=== PATIENT | male | born 1960 | race Caucasian/White ===

== ENCOUNTER 2023-03-24 11:35 | Emergency (ER) | payer OTHER ==
[~2023-03-24] VITALS: Ht 188 cm; Wt 99.8 kg
[2023-03-24 13:18] LABS: International Normalized Ratio 0.95
[2023-03-24 13:38] LABS: BASOPHILS ABSOLUTE AUTO 0.05 K/mm3 (0.00-0.23); BASOPHILS PERCENT AUTO 1 % (0-2); EOSINOPHILS ABSOLUTE AUTO 0.19 K/mm3 (0.00-0.68); EOSINOPHILS PERCENT AUTO 3 % (0-6); Hematocrit 46.7 % (37.0-53.0); Hemoglobin 16.4 g/dL (13.5-17.5); IMMATURE GRAN ABSOLUTE AUTO 0.04 K/mm3 (0.00-0.10); IMMATURE GRAN PERCENT AUTO 1 % (0-1); LYMPHOCYTES ABSOLUTE AUTO 1.69 K/mm3 (0.84-5.20); LYMPHOCYTES PERCENT AUTO 23 % (21-46); MONOCYTES ABSOLUTE AUTO 1.32 K/mm3 (0.16-1.47); MONOCYTES PERCENT AUTO 18 % (4-13); Mean Corpuscular HGB 32.1 pg (26.0-34.0); Mean Corpuscular HGB Conc 35.1 g/dL (31.5-36.5); Mean Corpuscular Volume 91 fL (80-100); Mean Platelet Volume 9.2 fL (9.1-12.4); NEUTROPHILS ABSOLUTE AUTO 3.99 K/mm3 (1.96-9.15); NEUTROPHILS PERCENT AUTO 55 % (41-73); Platelet Count 256 K/mm3 (150-400); RDW Coefficient Variation 11.9 % (11.7-14.2); RDW Standard Deviation 40.2 fL (35.1-46.3); Red Blood Cell Count 5.11 M/mm3 (4.30-5.90); White Blood Cell Count 7.28 K/mm3 (4.00-11.30)
[2023-03-24 14:19] LABS: Albumin, Blood 3.4 g/dL (3.4-5.0); Albumin/Globulin Ratio 0.8 (0.8-1.8); Bilirubin, Total 0.5 mg/dL (0.1-1.0); Bun/Creatinine Ratio 11.2 (12.0-20.0); Calcium, Blood 9.3 mg/dL (8.5-10.1); Creatinine, Blood 0.98 mg/dL (0.60-1.20); Globulin, Blood 4.3 g/dL (2.2-4.0); Potassium, Blood 4.5 mmol/L (3.5-5.5); Total Protein, Blood 7.7 g/dL (6.4-8.2)
[2023-03-24] MEDS ORDERED: METF500 PO (16:46)
[2023-03-24 18:00] VITALS: BP 127/80
== END 2023-03-24 19:06 | disposition home or self-care (01) ==
LOC: ER 11:35
PROVIDERS: Physician Assistant
DX: K62.5 Hemorrhage of anus and rectum (principal); R10.84 Generalized abdominal pain; F43.9 Reaction to severe stress, unspecified; Z79.84 Long term (current) use of oral hypoglycemic drugs; Z87.891 Personal history of nicotine dependence
CPT/HCPCS: 80053; 85025; 85610; 99283

== ENCOUNTER 2024-07-08 12:26 | Emergency (ER) | payer OTHER ==
[~2024-07-08] VITALS: Ht 182.9 cm; Wt 97.5 kg
[~2024-07-08 12:26] MED LIST: METF500 PO
[2024-07-08] MEDS ORDERED: CIPR500 PO (13:11)
[2024-07-08 13:15] LABS: Albumin, Blood 2.5 g/dL (3.4-5.0); Albumin/Globulin Ratio 0.5 (0.8-1.8); Bilirubin, Total 0.6 mg/dL (0.1-1.0); Calcium, Blood 8.8 mg/dL (8.5-10.1); Globulin, Blood 4.8 g/dL (2.2-4.0); Potassium, Blood 4.1 mmol/L (3.5-5.5); Total Protein, Blood 7.3 g/dL (6.4-8.2)
[2024-07-08] MEDS ORDERED: HYDROmorphone HCl/Pf 1MG SYR IV ONE (13:20)
[2024-07-08] MEDS ORDERED: Ondansetron HCl 2 MG / ML 2ML Vial IV ONE (13:20)
[2024-07-08] MEDS ORDERED: Lactated Ringer's 1,000 ML IV ONE (13:20)
[2024-07-08 13:38] LABS: BASOPHILS ABSOLUTE AUTO 0.05 K/mm3 (0.00-0.23); BASOPHILS PERCENT AUTO 1 % (0-2); EOSINOPHILS ABSOLUTE AUTO 0.36 K/mm3 (0.00-0.68); EOSINOPHILS PERCENT AUTO 5 % (0-6); Hematocrit 38.6 % (37.0-53.0); Hemoglobin 13.1 g/dL (13.5-17.5); IMMATURE GRAN ABSOLUTE AUTO 0.06 K/mm3 (0.00-0.10); IMMATURE GRAN PERCENT AUTO 1 % (0-1); LYMPHOCYTES ABSOLUTE AUTO 1.22 K/mm3 (0.84-5.20); LYMPHOCYTES PERCENT AUTO 18 % (21-46); MONOCYTES PERCENT AUTO 17 % (4-13); Mean Corpuscular HGB 30.5 pg (26.0-34.0); Mean Corpuscular HGB Conc 33.9 g/dL (31.5-36.5); Mean Corpuscular Volume 90 fL (80-100); Mean Platelet Volume 8.2 fL (9.1-12.4); NEUTROPHILS ABSOLUTE AUTO 4.03 K/mm3 (1.96-9.15); NEUTROPHILS PERCENT AUTO 58 % (41-73); Platelet Count 520 K/mm3 (150-400); RDW Coefficient Variation 12.4 % (11.7-14.2); RDW Standard Deviation 40.5 fL (35.1-46.3); White Blood Cell Count 6.92 K/mm3 (4.00-11.30)
[2024-07-08] MEDS ORDERED: ONDA4ODT MM (14:23)
[2024-07-08] MEDS ORDERED: OXYC5 PO (14:23)
[2024-07-08] MEDS ORDERED: OxyCODONE 5 mg/Acetamin 325 mg TABLET PO ONE (14:25)
[2024-07-08 14:52] LABS: Adenovirus F 40/41 Not Detected (NOT DETECT); Astrovirus Not Detected (NOT DETECT); Campylobacter Sp Not Detected (NOT DETECT); Cryptosporidium Not Detected (NOT DETECT); Cyclospora Cayetanensis Not Detected (NOT DETECT); E. Coli O157 Not Detected (NOT DETECT); Entamoeba Histolytica Not Detected (NOT DETECT); Enteroaggregative E. coli-EAEC Not Detected (NOT DETECT); Enteropathogenic E. coli-EPEC Not Detected (NOT DETECT); Enterotoxigenic E. coli-ETEC Not Detected (NOT DETECT); Giardia Lamblia Not Detected (NOT DETECT); Norovirus GI/GII Not Detected (NOT DETECT); Plesiomonas Shigelloides Not Detected (NOT DETECT); Rotavirus A Not Detected (NOT DETECT); Salmonella Sp Not Detected (NOT DETECT); Sapovirus Not Detected (NOT DETECT); Shiga Toxin-prod E. coli-STEC Not Detected (NOT DETECT); Shigella/Enteroin E. coli-EIEC Not Detected (NOT DETECT); Vibrio Cholerae Not Detected (NOT DETECT); Vibrio Sp Not Detected (NOT DETECT); Yersinia Enterocolitica Not Detected (NOT DETECT)
[2024-07-08 16:00] VITALS: BP 129/66
== END 2024-07-08 16:30 | disposition home or self-care (01) ==
LOC: ER 12:26
PROVIDERS: Emergency Medicine; Physician Assistant
DX: K52.9 Noninfective gastroenteritis and colitis, unspecified (principal)
CPT/HCPCS: 80053; 85025; 86850; 86900; 86901; 87507; 96361; 96374; 96375; 99284-25; A9270; J1170; J2405; J7120

== ENCOUNTER 2024-08-31 00:34 | Day surgery (SDC) | payer OTHER ==
[~2024-08-31 00:34] MED LIST changes: +Acetaminophen 325 MG TABLET PO SCH; +CIPR500 PO; +DiphenhydrAMINE HCL 25 MG Cap PO SCH; +Hydrocortisone Sod Succinate 100 MG Vial IV SCH; +INFLIXIMAB DYYB IV SCH; +NS IV SCH; +ONDA4ODT MM; +OXYC5 PO; +PRED20 PO
[2024-08-31 13:35] VITALS: BP 133/70
[2024-08-31] MEDS ORDERED: INFLECTRA100 MG IV (13:58)
== END 2024-08-31 16:20 | disposition home or self-care (01) ==
LOC: ATC 00:34
DX: K50.90 Crohn's disease, unspecified, without complications (principal); E11.9 Type 2 diabetes mellitus without complications; D64.9 Anemia, unspecified; Z79.84 Long term (current) use of oral hypoglycemic drugs; Z87.442 Personal history of urinary calculi
CPT/HCPCS: 96375; 96413; 96415; A9270; J1720; J7050; Q5103

== ENCOUNTER 2024-09-07 15:34 | Emergency (ER) | payer OTHER ==
[~2024-09-07] VITALS: Ht 188 cm; Wt 78.9 kg
[~2024-09-07 15:34] MED LIST changes: -Acetaminophen 325 MG TABLET PO SCH; -DiphenhydrAMINE HCL 25 MG Cap PO SCH; -Hydrocortisone Sod Succinate 100 MG Vial IV SCH; +INFLECTRA100 MG IV; -INFLIXIMAB DYYB IV SCH; -NS IV SCH
[2024-09-07 15:38] VITALS: BP 147/85
[2024-09-07 16:06] LABS: Base Excess Venous 1.5 mmol/L; Bicarbonate Venous 26.3 mmol/L (24.0-30.0); PCO2 Venous 31.6 mmHg (38-42)
[2024-09-07 17:01] LABS: BASOPHILS ABSOLUTE AUTO 0.02 K/mm3 (0.00-0.23); BASOPHILS PERCENT AUTO 0 % (0-2); EOSINOPHILS ABSOLUTE AUTO 0.01 K/mm3 (0.00-0.68); EOSINOPHILS PERCENT AUTO 0 % (0-6); Hematocrit 39.4 % (37.0-53.0); Hemoglobin 12.3 g/dL (13.5-17.5); IMMATURE GRAN ABSOLUTE AUTO 0.03 K/mm3 (0.00-0.10); IMMATURE GRAN PERCENT AUTO 1 % (0-1); LYMPHOCYTES ABSOLUTE AUTO 1.06 K/mm3 (0.84-5.20); LYMPHOCYTES PERCENT AUTO 17 % (21-46); MONOCYTES ABSOLUTE AUTO 0.69 K/mm3 (0.16-1.47); MONOCYTES PERCENT AUTO 11 % (4-13); Mean Corpuscular HGB 29.1 pg (26.0-34.0); Mean Corpuscular HGB Conc 31.2 g/dL (31.5-36.5); Mean Corpuscular Volume 93 fL (80-100); Mean Platelet Volume 8.8 fL (9.1-12.4); NEUTROPHILS ABSOLUTE AUTO 4.36 K/mm3 (1.96-9.15); NEUTROPHILS PERCENT AUTO 71 % (41-73); Platelet Count 318 K/mm3 (150-400); RDW Coefficient Variation 15.1 % (11.7-14.2); RDW Standard Deviation 52.4 fL (35.1-46.3); Red Blood Cell Count 4.22 M/mm3 (4.30-5.90); White Blood Cell Count 6.17 K/mm3 (4.00-11.30)
[2024-09-07 17:13] LABS: Albumin/Globulin Ratio 0.7 (0.8-1.8); Bilirubin, Total 0.4 mg/dL (0.1-1.0); Calcium, Blood 9.2 mg/dL (8.5-10.1); Globulin, Blood 4.1 g/dL (2.2-4.0); Magnesium, Blood 1.8 mg/dL (1.6-2.4); Potassium, Blood 5.2 mmol/L (3.5-5.5); Total Protein, Blood 7.1 g/dL (6.4-8.2)
[2024-09-07 17:35] LABS: Source, Urine Clean Catch
[2024-09-07 17:43] LABS: Appearance, Urine Clear (Clear); Bilirubin, Urine Neg (Neg); Blood, Urine Neg (Neg); Glucose Qualitative, Urine 4+ (Neg); Ketones, Urine Neg (Neg); Leukocyte Esterase, Urine Neg (Neg); Nitrite, Urine Neg (Neg); Protein, Urine Neg (Neg); Urobilinogen, Urine NORM (Normal); pH, Urine 6.5 (5.0-8.0)
[2024-09-07 17:45] LABS: Color, Urine Pale Yellow (P-Yellow)
== END 2024-09-07 19:10 | disposition left against medical advice (07) ==
LOC: ER 15:34
PROVIDERS: Physician Assistant
DX: Z53.21 Procedure and treatment not carried out due to patient leaving prior to being seen by health care provider (principal)
CPT/HCPCS: 80053; 81003; 82803; 83735; 85025

== ENCOUNTER 2024-10-29 04:01 | Day surgery (SDC) | payer OTHER ==
[2024-10-29] MEDS ORDERED: INFLIXIMAB DYYB IV SCH (06:00)
[2024-10-29] MEDS ORDERED: NS IV SCH (06:00)
[2024-10-29] MEDS ORDERED: Acetaminophen 325 MG TABLET PO SCH (07:10)
[2024-10-29] MEDS ORDERED: DiphenhydrAMINE HCL 25 MG Cap PO SCH (07:10)
[2024-10-29] MEDS ORDERED: Hydrocortisone Sod Succinate 100 MG Vial IV SCH (07:10)
[2024-10-29 14:20] VITALS: BP 140/86
== END 2024-10-29 17:06 | disposition home or self-care (01) ==
LOC: ATC 04:01
DX: K50.90 Crohn's disease, unspecified, without complications (principal); E11.9 Type 2 diabetes mellitus without complications; Z79.84 Long term (current) use of oral hypoglycemic drugs
CPT/HCPCS: 96375; 96413; 96415; A9270; J1720; J7050; Q5103

== ENCOUNTER → 2024-11-05 | Outpatient (CLI) | payer OTHER ==
[2024-11-07 10:10] LABS: CALPROTECTIN,FECAL 662 ug/g (<=49)
== END | disposition home or self-care (01) ==
LOC: LAB 14:04 → LAB SHORT 14:04
PROVIDERS: Physician Assistant Medical
DX: K51.818 Other ulcerative colitis with other complication (principal)
CPT/HCPCS: 83993

== ENCOUNTER 2024-12-24 01:04 | Day surgery (SDC) | payer OTHER ==
[~2024-12-24] VITALS: Wt 93.2 kg
[2024-12-24] MEDS ORDERED: NS IV SCH (06:00)
[2024-12-24] MEDS ORDERED: INFLIXIMAB DYYB IV SCH (06:00)
[2024-12-24] MEDS ORDERED: Acetaminophen 325 MG TABLET PO SCH (06:50)
[2024-12-24] MEDS ORDERED: Hydrocortisone Sod Succinate 100 MG Vial IV SCH (06:50)
[2024-12-24] MEDS ORDERED: DiphenhydrAMINE HCL 25 MG Cap PO SCH (06:50)
[2024-12-24 13:39] VITALS: BP 110/82
== END 2024-12-24 16:41 | disposition home or self-care (01) ==
LOC: ATC 01:04
DX: K50.90 Crohn's disease, unspecified, without complications (principal); D64.9 Anemia, unspecified; E11.9 Type 2 diabetes mellitus without complications; Z79.84 Long term (current) use of oral hypoglycemic drugs
CPT/HCPCS: 96375; 96413; 96415; A9270; J1720; J7050; Q5103

== ENCOUNTER 2025-02-12 03:53 | Day surgery (SDC) | payer OTHER ==
[2025-02-12] MEDS ORDERED: INFLIXIMAB DYYB IV SCH (06:00)
[2025-02-12] MEDS ORDERED: NS IV SCH (06:00)
[2025-02-12] MEDS ORDERED: Acetaminophen 325 MG TABLET PO PRN (07:25)
[2025-02-12] MEDS ORDERED: DiphenhydrAMINE HCL 25 MG Cap PO PRN (07:25)
[2025-02-12] MEDS ORDERED: Hydrocortisone Sod Succinate 100 MG Vial IV SCH ×2 (07:25→08:15)
[2025-02-12] MEDS ORDERED: Acetaminophen 325 MG TABLET PO SCH (08:15)
[2025-02-12 08:20] VITALS: BP 139/70
== END 2025-02-12 11:10 | disposition home or self-care (01) ==
LOC: ATC 03:53
DX: K50.90 Crohn's disease, unspecified, without complications (principal); Z87.891 Personal history of nicotine dependence; Z79.52 Long term (current) use of systemic steroids; Z79.899 Other long term (current) drug therapy
CPT/HCPCS: 96375; 96413; 96415; A9270; J1720; J7050; Q5103

== ENCOUNTER → 2025-05-10 | Outpatient (CLI) | payer OTHER ==
[~2025-05-10] MED LIST changes: +HUMULIN R100 UNIT/2 SC
[2025-05-12 20:20] LABS: CALPROTECTIN,FECAL 246 ug/g (<=49)
== END ==
LOC: LAB 09:15 → LAB SHORT 09:15
PROVIDERS: Physician Assistant Medical
DX: K52.9 Noninfective gastroenteritis and colitis, unspecified (principal)
CPT/HCPCS: 83993

== ENCOUNTER 2025-05-13 00:55 | Day surgery (SDC) | payer OTHER ==
[~2025-05-13 00:55] MED LIST changes: -HUMULIN R100 UNIT/2 SC
[2025-05-13] MEDS ORDERED: Vedolizumab 300 MG in NS 250 ML IV SCH (06:00)
[2025-05-13 15:13] VITALS: BP 130/75
[2025-05-13] MEDS ORDERED: HUMULIN R100 UNIT/2 SC (15:15)
== END 2025-05-13 16:11 | disposition home or self-care (01) ==
LOC: ATC 00:55
DX: K51.90 Ulcerative colitis, unspecified, without complications (principal); Z87.891 Personal history of nicotine dependence; Z79.620 Long term (current) use of immunosuppressive biologic; Z79.84 Long term (current) use of oral hypoglycemic drugs
CPT/HCPCS: 96365; J3380; J7050

== ENCOUNTER 2025-05-27 00:40 | Day surgery (SDC) | payer OTHER ==
[~2025-05-27 00:40] MED LIST changes: +HUMULIN R100 UNIT/2 SC
[2025-05-27 10:14] VITALS: BP 142/79
[2025-05-27] MEDS ORDERED: ENTYVIO300 M1 IV (10:18)
== END 2025-05-27 11:07 | disposition home or self-care (01) ==
LOC: ATC 00:40
DX: K51.90 Ulcerative colitis, unspecified, without complications (principal); Z87.891 Personal history of nicotine dependence; Z79.84 Long term (current) use of oral hypoglycemic drugs
CPT/HCPCS: 96365; J3380; J7050

== ENCOUNTER 2025-07-08 00:40 | Day surgery (SDC) | payer OTHER ==
[~2025-07-08 00:40] MED LIST changes: +ENTYVIO300 M1 IV
[2025-07-08 10:02] VITALS: BP 143/88
== END 2025-07-08 11:03 | disposition home or self-care (01) ==
LOC: ATC 00:40
DX: K51.90 Ulcerative colitis, unspecified, without complications (principal); Z87.891 Personal history of nicotine dependence
CPT/HCPCS: 96365; J3380; J7050

== ENCOUNTER 2025-09-02 03:52 | Day surgery (SDC) | payer OTHER ==
[~2025-09-02 03:52] MED LIST changes: +OMEPRAZOLE20 MG
[2025-09-02 10:24] VITALS: BP 147/76
== END 2025-09-02 11:31 | disposition home or self-care (01) ==
LOC: ATC 03:52
DX: K51.818 Other ulcerative colitis with other complication (principal); Z79.52 Long term (current) use of systemic steroids; Z79.620 Long term (current) use of immunosuppressive biologic; Z79.84 Long term (current) use of oral hypoglycemic drugs; Z79.899 Other long term (current) drug therapy; Z87.891 Personal history of nicotine dependence
CPT/HCPCS: 96365; J3380; J7050

== ENCOUNTER 2025-09-13 18:11 | Emergency (ER) | payer OTHER ==
[~2025-09-13] VITALS: Ht 188 cm; Wt 93.0 kg
[2025-09-13] MEDS ORDERED: NS 1,000 ML IV SCH ×2 (18:20→20:20)
[2025-09-13 18:43] LABS: BASOPHILS ABSOLUTE AUTO 0.01 K/mm3 (0.00-0.23); BASOPHILS PERCENT AUTO 0 % (0-2); EOSINOPHILS ABSOLUTE AUTO 0.00 K/mm3 (0.00-0.68); EOSINOPHILS PERCENT AUTO 0 % (0-6); Hematocrit 40.2 % (37.0-53.0); Hemoglobin 12.9 g/dL (13.5-17.5); IMMATURE GRAN ABSOLUTE AUTO 0.06 K/mm3 (0.00-0.10); IMMATURE GRAN PERCENT AUTO 1 % (0-1); LYMPHOCYTES ABSOLUTE AUTO 1.16 K/mm3 (0.84-5.20); LYMPHOCYTES PERCENT AUTO 9 % (21-46); MONOCYTES ABSOLUTE AUTO 0.88 K/mm3 (0.16-1.47); MONOCYTES PERCENT AUTO 7 % (4-13); Mean Corpuscular HGB Conc 32.1 g/dL (31.5-36.5); Mean Corpuscular Volume 80 fL (80-100); NEUTROPHILS ABSOLUTE AUTO 10.19 K/mm3 (1.96-9.15); NEUTROPHILS PERCENT AUTO 83 % (41-73); NRBC ABSOLUTE 0.00 K/mm3 (0.00-0.02); NRBC Auto 0.0 /100 WBC (0.0-0.2); Platelet Count 311 K/mm3 (150-400); RDW Coefficient Variation 16.3 % (11.7-14.2); RDW Standard Deviation 47.0 fL (35.1-46.3)
[2025-09-13 18:52] LABS: pH Blood Venous 7.42 (7.34-7.37)
[2025-09-13 19:09] LABS: Alanine Aminotransfer (ALT/SGP 89.0 U/L (12-78); Albumin, Blood 3.9 g/dL (3.4-5.0); Albumin/Globulin Ratio 1.0 (0.8-1.8); Anion Gap 8.0 mmol/L (3-11); Aspartate Aminotrans (AST/SGOT 28.0 U/L (12-37); Bilirubin, Total 0.6 mg/dL (0.1-1.0); Blood Urea Nitrogen 25.0 mg/dL (8-24); CO2, Blood 28.0 mmol/L (21-32); Calcium, Blood 9.7 mg/dL (8.5-10.1); Chloride, Blood 100.0 mmol/L (98-108); Creatinine, Blood 1.06 mg/dL (0.60-1.20); Globulin, Blood 4.0 g/dL (2.2-4.0); Glucose, Blood 348.0 mg/dL (70-99); Potassium, Blood 4.8 mmol/L (3.5-5.5); Sodium, Blood 131.0 mmol/L (136-145); Total Protein, Blood 7.9 g/dL (6.4-8.2)
[2025-09-13] MEDS ORDERED: Insulin Regular 100 Unit/ML 1ML Dose SC ONE (19:20)
[2025-09-13 19:30] VITALS: BP 148/85
[2025-09-13 19:35] LABS: Source, Urine Clean Catch
[2025-09-13 19:44] LABS: Bilirubin, Urine Neg (Neg); Glucose Qualitative, Urine 4+ (Neg); Ketones, Urine Neg (Neg); Leukocyte Esterase, Urine Neg (Neg); Protein, Urine Neg (Neg); Specific Gravity, Urine 1.015 (1.003-1.022); Urobilinogen, Urine NORM (Normal)
[2025-09-13 19:52] LABS: Color, Urine Pale Yellow (P-Yellow)
== END 2025-09-13 20:56 | disposition home or self-care (01) ==
LOC: ER 18:11
PROVIDERS: Student in an Organized Health Care Education/Training Program
DX: R73.9 Hyperglycemia, unspecified (principal); E86.0 Dehydration; R73.03 Prediabetes; K51.90 Ulcerative colitis, unspecified, without complications; D72.829 Elevated white blood cell count, unspecified; Z79.84 Long term (current) use of oral hypoglycemic drugs; Z87.891 Personal history of nicotine dependence
CPT/HCPCS: 80053; 81003; 82010; 82803; 82947; 85025; 99282; J1815; J7030

== ENCOUNTER → 2025-09-13 | Outpatient (CLI) | payer OTHER ==
[2025-09-17 10:53] LABS: CALPROTECTIN,FECAL 24 ug/g (<=49)
== END ==
LOC: LAB 10:15 → LAB SHORT 10:15
PROVIDERS: Physician Assistant Medical
DX: K51.90 Ulcerative colitis, unspecified, without complications (principal)
CPT/HCPCS: 83993

== ENCOUNTER → 2025-10-23 | Outpatient (CLI) | payer OTHER ==
[2025-10-23 16:10] LABS: BASOPHILS ABSOLUTE AUTO 0.01 K/mm3 (0.00-0.23); BASOPHILS PERCENT AUTO 0 % (0-2); EOSINOPHILS ABSOLUTE AUTO 0.01 K/mm3 (0.00-0.68); EOSINOPHILS PERCENT AUTO 0 % (0-6); Hematocrit 40.2 % (37.0-53.0); Hemoglobin 13.0 g/dL (13.5-17.5); IMMATURE GRAN ABSOLUTE AUTO 0.08 K/mm3 (0.00-0.10); IMMATURE GRAN PERCENT AUTO 1 % (0-1); LYMPHOCYTES ABSOLUTE AUTO 1.08 K/mm3 (0.84-5.20); LYMPHOCYTES PERCENT AUTO 10 % (21-46); MONOCYTES ABSOLUTE AUTO 0.86 K/mm3 (0.16-1.47); MONOCYTES PERCENT AUTO 8 % (4-13); Mean Corpuscular HGB Conc 32.3 g/dL (31.5-36.5); Mean Corpuscular Volume 81 fL (80-100); NEUTROPHILS ABSOLUTE AUTO 9.02 K/mm3 (1.96-9.15); NEUTROPHILS PERCENT AUTO 82 % (41-73); NRBC ABSOLUTE 0.00 K/mm3 (0.00-0.02); NRBC Auto 0.0 /100 WBC (0.0-0.2); Platelet Count 278 K/mm3 (150-400); RDW Coefficient Variation 17.3 % (11.7-14.2); RDW Standard Deviation 50.5 fL (35.1-46.3)
[2025-10-23 16:25] LABS: Anion Gap 13.0 mmol/L (3-11); Blood Urea Nitrogen 26.0 mg/dL (8-24); CO2, Blood 27.0 mmol/L (21-32); Calcium, Blood 9.4 mg/dL (8.5-10.1); Chloride, Blood 102.0 mmol/L (98-108); Creatinine, Blood 1.13 mg/dL (0.60-1.20); Glucose, Blood 204.0 mg/dL (70-99); Potassium, Blood 4.4 mmol/L (3.5-5.5); Sodium, Blood 138.0 mmol/L (136-145); Uric Acid, Blood 2.9 mg/dL (3.5-7.2)
== END ==
LOC: LAB 16:06 → LAB SHORT 16:06
PROVIDERS: Chiropractor
DX: M10.9 Gout, unspecified (principal)
CPT/HCPCS: 80048; 84550; 85025